=== PATIENT | female | born 1990 | race Caucasian/White ===

== ENCOUNTER 2017-09-15 08:53 | Emergency (ER) | payer MEDICAID ==
[~2017-09-15] VITALS: Ht 157.5 cm; Wt 47.3 kg
[~2017-09-15 08:53] MED LIST: DOXY100V2 PO; NO HOME MEDS
[2017-09-15] MEDS ORDERED: CLIN300C85 PO (09:19)
[2017-09-15 09:24] VITALS: BP 128/77
== END 2017-09-15 09:25 | disposition home or self-care (01) ==
LOC: ER 08:53
DX: L02.01 Cutaneous abscess of face (principal); L03.211 Cellulitis of face; F12.90 Cannabis use, unspecified, uncomplicated; Z86.14 Personal history of Methicillin resistant Staphylococcus aureus infection; Z88.5 Allergy status to narcotic agent; Z79.899 Other long term (current) drug therapy
CPT/HCPCS: 99283

== ENCOUNTER 2017-11-19 08:16 | Emergency (ER) | payer MEDICAID ==
[~2017-11-19] VITALS: Ht 157.5 cm; Wt 46.6 kg
[~2017-11-19 08:16] MED LIST changes: +CLIN300C85 PO
[2017-11-19 08:17] VITALS: BP 134/95
[2017-11-19 08:34] LABS: URINE HCG NEGATIVE (NEG)
[2017-11-19] MEDS ORDERED: HYDROcodone/acetaminophen 5mg/325mg tablet PO ONE (08:35)
[2017-11-19] MEDS ORDERED: ondansetron 4mg rapidly disintigrating tab PO ONE (08:35)
[2017-11-19] MEDS ORDERED: cephalexin 250mg capsule PO ONE (08:35)
[2017-11-19 08:36] LABS: CLARITY,URINE CLOUDY (Clear); COLOR,URINE YELLOW (Yellow); GLUCOSE, URINE NEGATIVE (Neg); KETONES,URINE NEGATIVE (Neg); LEUKOCYTE ESTERASE ,URINE MODERATE (Neg); OCCULT BLOOD,URINE LARGE (Neg); PROTEIN,URINE >=300 mg/dl (Neg); UROBILINOGEN,URINE 0.2 E.U/dL (0.2-1.0)
[2017-11-19 08:43] LABS: UA COLLECTION TYPE CLN CATCH MIDSTREAM
[2017-11-19 08:45] LABS: NITRITES, URINE NEGATIVE (Neg)
[2017-11-19 08:46] LABS: BACTERIA,URINE FEW /HPF (Neg); MUCUS STRANDS NONE SEEN /LPF (Neg); RBC,URINE 50-100 /HPF (0-2); SQUAMOUS EPITHELIAL CELL,UR NONE SEEN /LPF (FEW); TRANSITIONAL EPI CELLS,URINE FEW /HPF; WBC,URINE 50-100 /HPF (0-4)
[2017-11-19] MEDS ORDERED: CEPH500C5 PO (08:56)
[2017-11-19] MEDS ORDERED: ONDA4TAB12 PO (08:56)
[2017-11-19] MEDS ORDERED: HYDR-3965 PO (08:56)
== END 2017-11-19 09:18 | disposition home or self-care (01) ==
LOC: ER 08:16
DX: N39.0 Urinary tract infection, site not specified (principal); R10.11 Right upper quadrant pain; F12.90 Cannabis use, unspecified, uncomplicated; F17.210 Nicotine dependence, cigarettes, uncomplicated; Z88.6 Allergy status to analgesic agent; Z88.2 Allergy status to sulfonamides; Z98.890 Other specified postprocedural states
CPT/HCPCS: 81001; 81025; 87077; 87088; 87186; 99284

== ENCOUNTER 2018-09-03 10:17 | Emergency (ER) | payer MEDICAID ==
[~2018-09-03] VITALS: Ht 157.5 cm; Wt 53.0 kg
[~2018-09-03 10:17] MED LIST changes: +CEPH500C5 PO; +CLIN-96 PO; -CLIN300C85 PO; +ONDA4TAB12 PO
[2018-09-03 11:51] LABS: BASOPHILS % (AUTO) 0.3 % (0-1); EOSINOPHILS % (AUTO) 0.3 % (0-6); HEMATOCRIT 40.4 % (35.0-45.0); HEMOGLOBIN 13.8 g/dl (12.0-16.0); LYMPHOCYTES # (AUTO) 1.3 X10'3 (1.1-4.8); LYMPHOCYTES % (AUTO) 12.5 % (21-51); MEAN CORPUSCULAR HEMOGLOBIN 32.4 PG (27.0-31.0); MEAN CORPUSCULAR HGB CONC 34.1 g/dL (33.0-36.5); MEAN CORPUSCULAR VOLUME 94.9 FL (78-98); MEAN PLATELET VOLUME 8.2 FL (7.4-10.4); MONOCYTES # (AUTO) 0.7 X10'3 (0-0.9); MONOCYTES % (AUTO) 7.1 % (2-12); NEUTROPHILS # (AUTO) 8.4 X10'3 (1.8-7.7); NEUTROPHILS % (AUTO) 79.8 % (42-75); PLATELET COUNT 248 X10'3 (140-440); RED BLOOD COUNT 4.26 X10'6 (4.20-5.60); RED CELL DISTRIBUTION WIDTH 12.7 % (11.5-14.5); WHITE BLOOD COUNT 10.5 X10'3 (4.5-11.0)
[2018-09-03 11:53] LABS: ALANINE AMINOTRANSFERASE 17 U/L (12-78); ALBUMIN 4.1 G/DL (3.4-5.0); ALKALINE PHOSPHATASE 42 IU/L (46-116); ANION GAP 11 (8-16); ASPARTATE AMINO TRANSFERASE 12 U/L (10-37); BILIRUBIN,TOTAL 0.4 MG/DL (0.1-1.0); BLOOD UREA NITROGEN 10 MG/DL (7-18); BUN/CREATININE RATIO 11.2 (6.6-38.0); CALCIUM 9.4 MG/DL (8.5-10.1); CHLORIDE 103 MMOL/L (99-107); CREATININE 0.89 MG/DL (0.40-0.90); GLUCOSE 115 MG/DL (70-104); POTASSIUM 3.8 MMOL/L (3.5-5.1); SODIUM 139 MMOL/L (135-145); TOTAL CARBON DIOXIDE 25.3 MMOL/L (24-32); TOTAL PROTEIN 8.1 G/DL (6.4-8.2); eGFR 75 ML/MIN
[2018-09-03 11:54] LABS: CLARITY,URINE CLEAR (Clear); COLOR,URINE YELLOW (Yellow); GLUCOSE, URINE NEGATIVE (Neg); KETONES,URINE NEGATIVE (Neg); LEUKOCYTE ESTERASE ,URINE NEGATIVE (Neg); NITRITES, URINE NEGATIVE (Neg); OCCULT BLOOD,URINE NEGATIVE (Neg); PROTEIN,URINE TRACE mg/dl (Neg); UROBILINOGEN,URINE 0.2 E.U/dL (0.2-1.0)
[2018-09-03 11:55] LABS: URINE HCG NEGATIVE (NEG)
[2018-09-03 11:58] LABS: UA COLLECTION TYPE CLN CATCH MIDSTREAM
[2018-09-03 12:02] LABS: MUCUS STRANDS MANY /LPF (Neg); SQUAMOUS EPITHELIAL CELL,UR MANY /LPF (FEW)
[2018-09-03 12:05] LABS: BACTERIA,URINE FEW /HPF (Neg); RBC,URINE 0-2 /HPF (0-2); WBC,URINE 0-4 /HPF (0-4)
[2018-09-03] MEDS ORDERED: LORazepam 2 mg/ml vial IM ONE (13:30)
[2018-09-03 13:47] VITALS: BP 141/67
== END 2018-09-03 13:50 | disposition home or self-care (01) ==
LOC: ER 10:17
DX: R00.2 Palpitations (principal); R06.02 Shortness of breath; R51 Headache; R42 Dizziness and giddiness; R20.2 Paresthesia of skin; F41.9 Anxiety disorder, unspecified; F12.90 Cannabis use, unspecified, uncomplicated; F10.99 Alcohol use, unspecified with unspecified alcohol-induced disorder; Z86.2 Personal history of diseases of the blood and blood-forming organs and certain disorders involving the immune mechanism; Z86.14 Personal history of Methicillin resistant Staphylococcus aureus infection; Z98.890 Other specified postprocedural states; Z87.891 Personal history of nicotine dependence; Z88.2 Allergy status to sulfonamides; Z88.5 Allergy status to narcotic agent; Z88.1 Allergy status to other antibiotic agents; Z79.899 Other long term (current) drug therapy; Y90.9 Presence of alcohol in blood, level not specified
CPT/HCPCS: 36415; 70450; 80053; 81001; 81025; 84443; 85025; 85610; 93005; 96372; 99284; J2060

== ENCOUNTER 2018-12-10 14:17 | Emergency (ER) | payer MEDICAID ==
[~2018-12-10] VITALS: Ht 157.5 cm; Wt 54.8 kg
[~2018-12-10 14:17] MED LIST changes: -CEPH500C5 PO; +CLIN-90 PO; -CLIN-96 PO
[2018-12-10 14:22] VITALS: BP 160/89
== END 2018-12-10 19:58 | disposition left against medical advice (07) ==
LOC: ER 14:17
DX: N93.9 Abnormal uterine and vaginal bleeding, unspecified (principal); Z53.21 Procedure and treatment not carried out due to patient leaving prior to being seen by health care provider

== ENCOUNTER 2019-02-28 19:09 | Emergency (ER) | payer MEDICAID ==
[~2019-02-28] VITALS: Ht 157.5 cm; Wt 56.0 kg
[2019-02-28 19:40] LABS: URINE HCG NEGATIVE (NEG)
[2019-02-28 19:44] LABS: CLARITY,URINE CLOUDY (Clear); COLOR,URINE YELLOW (Yellow); GLUCOSE, URINE NEGATIVE (Neg); KETONES,URINE >=80 mg/dl (Neg); LEUKOCYTE ESTERASE ,URINE NEGATIVE (Neg); NITRITES, URINE NEGATIVE (Neg); OCCULT BLOOD,URINE TRACE-INTACT (Neg); PROTEIN,URINE 30 mg/dl (Neg)
[2019-02-28 19:49] LABS: ALANINE AMINOTRANSFERASE 57 U/L (12-78); ALBUMIN 4.1 G/DL (3.4-5.0); ALKALINE PHOSPHATASE 53 IU/L (46-116); ANION GAP 10 (8-16); ASPARTATE AMINO TRANSFERASE 41 U/L (10-37); BASOPHILS % (AUTO) 0.4 % (0-1); BILIRUBIN,TOTAL 0.5 MG/DL (0.1-1.0); BLOOD UREA NITROGEN 11 MG/DL (7-18); BUN/CREATININE RATIO 14.1 (6.6-38.0); CALCIUM 8.9 MG/DL (8.5-10.1); CHLORIDE 102 MMOL/L (99-107); CREATININE 0.78 MG/DL (0.40-0.90); EOSINOPHILS % (AUTO) 0.2 % (0-6); GLUCOSE 99 MG/DL (70-104); HEMATOCRIT 37.2 % (35.0-45.0); HEMOGLOBIN 12.8 g/dl (12.0-16.0); LIPASE 67 U/L (73-393); LYMPHOCYTES # (AUTO) 0.8 X10'3 (1.1-4.8); LYMPHOCYTES % (AUTO) 13.8 % (21-51); MEAN CORPUSCULAR HEMOGLOBIN 32.8 PG (27.0-31.0); MEAN CORPUSCULAR HGB CONC 34.3 g/dL (33.0-36.5); MEAN CORPUSCULAR VOLUME 95.5 FL (78-98); MEAN PLATELET VOLUME 7.9 FL (7.4-10.4); MONOCYTES # (AUTO) 0.7 X10'3 (0-0.9); MONOCYTES % (AUTO) 11.1 % (2-12); NEUTROPHILS # (AUTO) 4.5 X10'3 (1.8-7.7); NEUTROPHILS % (AUTO) 74.5 % (42-75); PLATELET COUNT 186 X10'3 (140-440); POTASSIUM 3.1 MMOL/L (3.5-5.1); RED CELL DISTRIBUTION WIDTH 13.2 % (11.5-14.5); SODIUM 139 MMOL/L (135-145); TOTAL CARBON DIOXIDE 26.6 MMOL/L (24-32); TOTAL PROTEIN 8.1 G/DL (6.4-8.2); eGFR 87 ML/MIN
[2019-02-28 19:49] LABS: UA COLLECTION TYPE VOIDED
[2019-02-28 19:51] LABS: BACTERIA,URINE FEW /HPF (Neg); MUCUS STRANDS MANY /LPF (Neg); RBC,URINE 0-2 /HPF (0-2)
[2019-02-28 19:52] LABS: SQUAMOUS EPITHELIAL CELL,UR MODERATE /LPF (FEW)
[2019-02-28] MEDS ORDERED: iohexol 300mg/ml 100ml inj. ONE (20:25)
[2019-02-28 21:28] VITALS: BP 147/96
== END 2019-02-28 22:03 | disposition home or self-care (01) ==
LOC: ER 19:10
DX: R10.31 Right lower quadrant pain (principal); R11.0 Nausea; F41.9 Anxiety disorder, unspecified; F12.90 Cannabis use, unspecified, uncomplicated; Z86.14 Personal history of Methicillin resistant Staphylococcus aureus infection; Z98.890 Other specified postprocedural states; Z88.2 Allergy status to sulfonamides; Z88.1 Allergy status to other antibiotic agents; Z88.5 Allergy status to narcotic agent; Z79.2 Long term (current) use of antibiotics; Z79.899 Other long term (current) drug therapy
CPT/HCPCS: 36415; 74177; 80053; 81001; 81025; 83690; 85025; 87088; 99284; Q9967

== ENCOUNTER 2020-07-10 17:57 | Emergency (ER) | payer MEDICAID ==
[~2020-07-10] VITALS: Ht 157.5 cm; Wt 64.0 kg
[~2020-07-10 17:57] MED LIST changes: -CLIN-90 PO; +CLIN-97 PO
[2020-07-10 18:07] VITALS: BP 150/100
== END 2020-07-10 18:23 | disposition home or self-care (01) ==
LOC: ER 17:58
DX: S61.213A Laceration without foreign body of left middle finger without damage to nail, initial encounter (principal); F41.9 Anxiety disorder, unspecified; F12.90 Cannabis use, unspecified, uncomplicated; Z86.2 Personal history of diseases of the blood and blood-forming organs and certain disorders involving the immune mechanism; Z87.440 Personal history of urinary (tract) infections; Z86.14 Personal history of Methicillin resistant Staphylococcus aureus infection; Z98.890 Other specified postprocedural states; Z72.89 Other problems related to lifestyle; Z88.2 Allergy status to sulfonamides; Z88.1 Allergy status to other antibiotic agents; Z88.5 Allergy status to narcotic agent; Z79.2 Long term (current) use of antibiotics; X58.XXXA Exposure to other specified factors, initial encounter; Y93.89 Activity, other specified; Y92.89 Other specified places as the place of occurrence of the external cause; Y99.8 Other external cause status
CPT/HCPCS: 12002; 99282

== ENCOUNTER 2021-09-05 15:27 | Emergency (ER) | payer MEDICAID ==
[~2021-09-05] VITALS: Ht 157.5 cm; Wt 63.6 kg
[2021-09-05 15:42] VITALS: BP 129/90
[2021-09-05] MEDS ORDERED: TRIA15CR61 TOP ×4 (17:39→19:28)
[2021-09-05] MEDS ORDERED: ERYT1OIN6 LEFTEYE ×4 (17:39→19:28)
[2021-09-05] MEDS ORDERED: AMOX500C2 PO ×4 (17:39→19:28)
== END 2021-09-05 17:56 | disposition home or self-care (01) ==
LOC: ER 15:27
DX: H00.016 Hordeolum externum left eye, unspecified eyelid (principal); K08.89 Other specified disorders of teeth and supporting structures; N89.8 Other specified noninflammatory disorders of vagina; L30.8 Other specified dermatitis; F12.90 Cannabis use, unspecified, uncomplicated; Z88.1 Allergy status to other antibiotic agents; Z88.2 Allergy status to sulfonamides; Z88.5 Allergy status to narcotic agent
CPT/HCPCS: 99283

== ENCOUNTER 2021-09-07 10:52 | Emergency (ER) | payer MEDICAID ==
[~2021-09-07] VITALS: Ht 157.5 cm; Wt 63.6 kg
[~2021-09-07 10:52] MED LIST changes: +AMOX500C2 PO; +ERYT1OIN6 LEFTEYE; +TRIA15CR61 TOP
[2021-09-07 10:58] VITALS: BP 145/95
[2021-09-07 11:49] LABS: CLARITY,URINE CLEAR (Clear); COLOR,URINE YELLOW (Yellow); GLUCOSE, URINE NEGATIVE (Neg); KETONES,URINE 15 mg/dl (Neg); LEUKOCYTE ESTERASE ,URINE NEGATIVE (Neg); NITRITES, URINE NEGATIVE (Neg); OCCULT BLOOD,URINE NEGATIVE (Neg); PROTEIN,URINE NEGATIVE (Neg); UROBILINOGEN,URINE 0.2 E.U/dL (0.2-1.0)
[2021-09-07 11:52] LABS: URINE HCG NEGATIVE (NEG)
[2021-09-07 11:53] LABS: UA COLLECTION TYPE CLN CATCH MIDSTREAM
[2021-09-07] MEDS ORDERED: amoxicillin 250mg capsule PO ONE (14:30)
== END 2021-09-07 14:50 | disposition home or self-care (01) ==
LOC: ER 10:52
DX: R82.998 Other abnormal findings in urine (principal); F12.90 Cannabis use, unspecified, uncomplicated; Z88.1 Allergy status to other antibiotic agents; Z88.2 Allergy status to sulfonamides; Z88.5 Allergy status to narcotic agent
CPT/HCPCS: 81003; 81025; 99283

== ENCOUNTER 2022-02-09 15:51 | Emergency (ER) | payer MEDICAID ==
[~2022-02-09] VITALS: Ht 157.5 cm; Wt 63.6 kg
[2022-02-09 16:01] VITALS: BP 154/102
[2022-02-09 16:42] LABS: BASOPHILS % (AUTO) 0.5 % (0-1); EOSINOPHILS % (AUTO) 0 % (0-6); HEMATOCRIT 40.1 % (35.0-45.0); HEMOGLOBIN 13.5 g/dl (12.0-16.0); LYMPHOCYTES # (AUTO) 1.3 X10'3 (1.1-4.8); LYMPHOCYTES % (AUTO) 14.1 % (21-51); MEAN CORPUSCULAR HEMOGLOBIN 32.2 PG (27.0-31.0); MEAN CORPUSCULAR HGB CONC 33.6 g/dL (33.0-36.5); MEAN CORPUSCULAR VOLUME 95.8 FL (78-98); MEAN PLATELET VOLUME 8.3 FL (7.4-10.4); MONOCYTES # (AUTO) 0.8 X10'3 (0-0.9); MONOCYTES % (AUTO) 8.5 % (2-12); NEUTROPHILS % (AUTO) 76.9 % (42-75); PLATELET COUNT 271 X10'3 (140-440); RED BLOOD COUNT 4.18 X10'6 (4.20-5.60); RED CELL DISTRIBUTION WIDTH 13.3 % (11.5-14.5); WHITE BLOOD COUNT 9.2 X10'3 (4.5-11.0)
[2022-02-09 16:59] LABS: ALANINE AMINOTRANSFERASE 29 U/L (12-78); ALBUMIN 4.1 G/DL (3.4-5.0); ALKALINE PHOSPHATASE 44 IU/L (46-116); ANION GAP 14 (8-16); ASPARTATE AMINO TRANSFERASE 28 U/L (10-37); BILIRUBIN,TOTAL 0.5 MG/DL (0.1-1.0); BLOOD UREA NITROGEN 12 MG/DL (7-18); BUN/CREATININE RATIO 14.8 (6.6-38.0); CALCIUM 9.2 MG/DL (8.5-10.1); CHLORIDE 99 MMOL/L (99-107); CREATININE 0.81 MG/DL (0.40-0.90); GLUCOSE 104 MG/DL (70-104); LIPASE 72 U/L (73-393); POTASSIUM 3.2 MMOL/L (3.5-5.1); SODIUM 135 MMOL/L (135-145); TOTAL CARBON DIOXIDE 22.1 MMOL/L (24-32); TOTAL PROTEIN 8.3 G/DL (6.4-8.2); eGFR 81 ML/MIN
== END 2022-02-09 20:31 | disposition left against medical advice (07) ==
LOC: ER 15:51
DX: R10.32 Left lower quadrant pain (principal); Z53.21 Procedure and treatment not carried out due to patient leaving prior to being seen by health care provider
CPT/HCPCS: 36415; 80053; 83690; 85025

== ENCOUNTER 2022-02-11 15:20 | Emergency (ER) | payer MEDICAID ==
[~2022-02-11] VITALS: Ht 157.5 cm; Wt 63.0 kg
[2022-02-11] MEDS ORDERED: metoprolol tartrate 1mg/ml inj IV ONE (15:30)
[2022-02-11] MEDS ORDERED: normal saline 1000ML IV soln IVB ONE (15:30)
[2022-02-11 15:40] LABS: BASOPHILS % (AUTO) 0.3 % (0-1); EOSINOPHILS % (AUTO) 0.4 % (0-6); HEMATOCRIT 40.6 % (35.0-45.0); HEMOGLOBIN 13.8 g/dl (12.0-16.0); LYMPHOCYTES # (AUTO) 1.9 X10'3 (1.1-4.8); LYMPHOCYTES % (AUTO) 16.4 % (21-51); MEAN CORPUSCULAR HEMOGLOBIN 32.6 PG (27.0-31.0); MEAN PLATELET VOLUME 7.7 FL (7.4-10.4); MONOCYTES # (AUTO) 1.1 X10'3 (0-0.9); MONOCYTES % (AUTO) 9.6 % (2-12); NEUTROPHILS # (AUTO) 8.5 X10'3 (1.8-7.7); NEUTROPHILS % (AUTO) 73.3 % (42-75); PLATELET COUNT 295 X10'3 (140-440); RED BLOOD COUNT 4.23 X10'6 (4.20-5.60); WHITE BLOOD COUNT 11.6 X10'3 (4.5-11.0)
[2022-02-11 16:05] LABS: ALANINE AMINOTRANSFERASE 32 U/L (12-78); ALBUMIN 4.3 G/DL (3.4-5.0); ALBUMIN/GLOBULIN RATIO 1.1 (1.1-1.5); ALKALINE PHOSPHATASE 49 IU/L (46-116); ANION GAP 10 (8-16); ASPARTATE AMINO TRANSFERASE 27 U/L (10-37); BILIRUBIN,TOTAL 0.4 MG/DL (0.1-1.0); BLOOD UREA NITROGEN 13 MG/DL (7-18); BUN/CREATININE RATIO 14.3 (6.6-38.0); CALCIUM 9.4 MG/DL (8.5-10.1); CHLORIDE 99 MMOL/L (99-107); CREATININE 0.91 MG/DL (0.40-0.90); GLUCOSE 116 MG/DL (70-104); POTASSIUM 3.5 MMOL/L (3.5-5.1); SODIUM 135 MMOL/L (135-145); TOTAL CARBON DIOXIDE 25.8 MMOL/L (24-32); TOTAL PROTEIN 8.3 G/DL (6.4-8.2); eGFR 71 ML/MIN
[2022-02-11 16:53] LABS: CLARITY,URINE CLOUDY (Clear); COLOR,URINE YELLOW (Yellow); GLUCOSE, URINE NEGATIVE (Neg); KETONES,URINE >=80 mg/dl (Neg); LEUKOCYTE ESTERASE ,URINE NEGATIVE (Neg); NITRITES, URINE NEGATIVE (Neg); OCCULT BLOOD,URINE LARGE (Neg); PROTEIN,URINE NEGATIVE (Neg); UROBILINOGEN,URINE 0.2 E.U/dL (0.2-1.0)
[2022-02-11 16:54] LABS: URINE HCG NEGATIVE (NEG)
[2022-02-11 17:08] LABS: UA COLLECTION TYPE CLN CATCH MIDSTREAM
[2022-02-11 17:09] LABS: BACTERIA,URINE 1+ /HPF (Neg); MUCUS STRANDS MODERATE /LPF (Neg); RBC,URINE TNTC /HPF (0-2); SQUAMOUS EPITHELIAL CELL,UR MODERATE /LPF (FEW); WBC,URINE 0-4 /HPF (0-4)
--- NOTE | 2022-02-11 17:28 | NUR ---
first contact ambulatory ao4 no visual or auditory abnormalities. left sided flank pain. currently on menses. skin w/d/i pink resp even unlabored.
[2022-02-11 18:33] VITALS: BP 120/80
== END 2022-02-11 18:35 | disposition home or self-care (01) ==
LOC: ER 15:21
DX: R10.32 Left lower quadrant pain (principal); I10 Essential (primary) hypertension; R00.2 Palpitations; R42 Dizziness and giddiness; F41.9 Anxiety disorder, unspecified; F12.10 Cannabis abuse, uncomplicated; Z86.2 Personal history of diseases of the blood and blood-forming organs and certain disorders involving the immune mechanism; Z87.448 Personal history of other diseases of urinary system; Z86.14 Personal history of Methicillin resistant Staphylococcus aureus infection; Z88.2 Allergy status to sulfonamides; Z88.1 Allergy status to other antibiotic agents; Z88.5 Allergy status to narcotic agent; Z79.899 Other long term (current) drug therapy; Z79.1 Long term (current) use of non-steroidal anti-inflammatories (NSAID)
CPT/HCPCS: 36415; 74176; 76830; 76856; 80053; 81001; 81025; 84443; 85025; 93005; 93976; 96361; 96374; 99285; J3490; J7030